=== PATIENT | female | born 1985 | race Caucasian/White ===

== ENCOUNTER 2018-12-30 05:55 | Inpatient (IN) | payer OTHER ==
[2018-12-30] MEDS ORDERED: OXYTOCIN 30 UNITS/LR 500 ML IV ×2 (10:30→23:00)
[2018-12-30] MEDS ORDERED: MISOPROSTOL 200 MCG TAB PR ×2 (10:30→23:00)
[2018-12-30] MEDS ORDERED: LIDOCAINE 1% (MPF) 30 ML INJ INJ (10:30)
[2018-12-30] MEDS ORDERED: CARBOPROST 250 MCG INJ IM ×2 (10:30→23:00)
[2018-12-30] MEDS: LACTATED RINGER'S 1,000 ML IV ×2 (11:27→13:15)
[2018-12-30 11:45] LABS: ADD MAN DIFF? NO
[2018-12-30 11:49] LABS: WHITE BLOOD COUNT 16.5 10^3/ul (4.8-10.8)
[2018-12-30 11:49] LABS: BASOPHILS % 0.2 % (0.0-2.0); HEMATOCRIT 39.4 % (37.0-47.0); HEMOGLOBIN 13.2 g/dl (12.0-16.0); LYMPHOCYTES # 2.3 10^3/ul (0.8-2.9); LYMPHOCYTES % 13.9 % (15.0-51.0); MEAN CORPUSCULAR HEMOGLOBIN 29.2 pg (29.0-33.0); MEAN CORPUSCULAR HGB CONC 33.5 g/dl (32.0-37.0); MEAN CORPUSCULAR VOLUME 87.2 fl (82.0-101.0); MEAN PLATELET VOLUME 10.9 fl (7.4-10.4); MONOCYTE # 0.5 10^3/ul (0.3-0.9); MONOCYTES % 2.7 % (0.0-11.0); NEUTROPHIL # 13.6 10^3/ul (1.6-7.5); NEUTROPHILS % 82.5 % (39.0-77.0); PLATELET COUNT 255 10^3/UL (140-415); RED BLOOD COUNT 4.52 10^6/ul (4.20-5.40); RED CELL DISTRIBUTION WIDTH 13.2 % (11.5-14.5)
[2018-12-30] MEDS: BUTORPHANOL 2 MG INJ IV (11:54)
[2018-12-30] MEDS ORDERED: BUTORPHANOL 2 MG INJ IV (12:00)
[2018-12-30 12:09] LABS: INR 0.94; PROTIME 12.7 Sec (11.9-14.9)
[2018-12-30 12:10] LABS: PARTIAL THROMBOPLASTIN TIME 27.6 Sec (23.0-35.0)
[2018-12-30] MEDS ORDERED: ROPIVACAINE 0.2% 100 ML (12:33)
[2018-12-30] MEDS ORDERED: DIPHENHYDRAMINE 50 MG INJ IV (13:30)
[2018-12-30] MEDS ORDERED: FENTAnyl 2MCG/ML-ROPIV 0.2% 100 ML BAG EPI (13:30)
[2018-12-30] MEDS ORDERED: NALOXONE (0.4 MG/ML) INJ IV (13:30)
[2018-12-30] MEDS ORDERED: ONDANSETRON 4 MG INJ IV ×2 (13:30→23:00)
[2018-12-30] MEDS ORDERED: KETOROLAC 30 MG INJ IV (13:30)
[2018-12-30 15:19] LABS: RAPID PLASMA REAGIN NONREACTIVE (NR)
[2018-12-30] MEDS: OXYTOCIN 30 UNITS/LR 500 ML IV ×4 (17:55→23:03)
[2018-12-30] MEDS ORDERED: MINERAL OIL LIGHT 10 ML VIAL TOP (21:30)
[2018-12-30] MEDS ORDERED: NA PHOSPHATE/BIPHOS 133 ML ENEMA PR (23:00)
[2018-12-30] MEDS ORDERED: MAGNESIUM HYDROXIDE 30ML CUP PO (23:00)
[2018-12-30] MEDS ORDERED: HYDROCODONE/APAP (5/325) TAB PO (23:00)
[2018-12-30] MEDS ORDERED: METHYLERGONOVINE 0.2 MG INJ IM (23:00)
[2018-12-30] MEDS ORDERED: ZOLPIDEM 5 MG TAB PO (23:00)
[2018-12-30] MEDS ORDERED: DIPHENHYDRAMINE 25 MG CAP PO (23:00)
[2018-12-30] MEDS ORDERED: METHYLERGONOVINE 0.2 MG TAB PO (23:00)
[2018-12-30 23:06] LABS: CBV Base Excess -6.7 mmol/L; CBV COHb 0.9 %; CBV Oxygen Sat 39.2 mmHG; CBV Total Hemglobin 18.8 g/dl; Cord Blood Venous pO2 19.3 mmHG (15.0-45.0); Fraction OxyHgb Cord Venous 38.3 %; MODE ROOM AIR; MetHgb Cord Venous 1.4 %; Sample Type Blood venous; Site CORD
[2018-12-30] MEDS: AMPICILLIN 2 GM/NS (PMX) 100 ML IV (23:06)
[2018-12-30] MEDS: LACTATED RINGER'S 1,000 ML IV* (23:06)
[2018-12-30 23:09] LABS: AADO2 Cord Arterial 63.5 mmHg; Arterial Cord Blood pCO2 60.1 mmHG (25-50); CBA Base Excess -8.4 mmol/L; CBA COHb 0.2 %; CBA Oxygen Sat 23.8 mmHG; CBA Total Hemglobin 18.3 g/dl; Cord Blood Arterial pO2 14.3 mmHG (15.0-45.0); Fraction OxyHgb Cord Arterial 23.4 %; MODE ROOM AIR; MetHgb Cord Arterial 1.6 %; Site CORD
[2018-12-30] MEDS: METHYLERGONOVINE 0.2 MG INJ IM (23:20)
[2018-12-31] MEDS ORDERED: AMPICILLIN 1 GM/NS (PMX) 50 ML IV (01:30)
[2018-12-31] MEDS: LACTATED RINGER'S 1,000 ML IV (02:25)
[2018-12-31] MEDS: LACTATED RINGER'S 1,000 ML IV* (03:16)
[2018-12-31] MEDS: LANOLIN HPA 1 PKT TOP (05:08)
[2018-12-31] MEDS: WITCH HAZEL/GLYCERIN PAD PR (05:08)
[2018-12-31] MEDS: BENZOCAINE 20% 56 ML SPRAY TOP (05:08)
[2018-12-31] MEDS: HYDROCODONE/APAP (5/325) TAB PO (05:43)
[2018-12-31 09:29] LABS: ADD MAN DIFF? NO
[2018-12-31 09:31] LABS: WHITE BLOOD COUNT 18.8 10^3/ul (4.8-10.8)
[2018-12-31 09:31] LABS: BASOPHILS % 0.2 % (0.0-2.0); HEMATOCRIT 35.3 % (37.0-47.0); HEMOGLOBIN 11.9 g/dl (12.0-16.0); LYMPHOCYTES # 3.5 10^3/ul (0.8-2.9); LYMPHOCYTES % 18.7 % (15.0-51.0); MEAN CORPUSCULAR HEMOGLOBIN 29.2 pg (29.0-33.0); MEAN CORPUSCULAR HGB CONC 33.7 g/dl (32.0-37.0); MEAN CORPUSCULAR VOLUME 86.7 fl (82.0-101.0); MEAN PLATELET VOLUME 10.8 fl (7.4-10.4); MONOCYTE # 0.8 10^3/ul (0.3-0.9); MONOCYTES % 4.3 % (0.0-11.0); NEUTROPHIL # 14.3 10^3/ul (1.6-7.5); NEUTROPHILS % 76.2 % (39.0-77.0); PLATELET COUNT 240 10^3/UL (140-415); RED BLOOD COUNT 4.07 10^6/ul (4.20-5.40); RED CELL DISTRIBUTION WIDTH 13.8 % (11.5-14.5)
[2018-12-31] MEDS: SENNA/DOCUSATE NA (8.6MG/50MG) TAB PO ×2 (10:09→21:00)
[2018-12-31 10:30] LABS: HEPATITIS B SURFACE ANTIGEN NEGATIVE (NEGATIVE)
[2018-12-31] MEDS ORDERED: IBUPROFEN 600 MG TAB PO (13:30)
[2019-01-01] MEDS: VARICELLA VACCINE LIVE/PF 1,350 UNIT/0.5 ML ML SC* (09:00)
[2019-01-01] MEDS: DIPHTH/TET/ACEL PERTUSS (ADULT) 0.5 ML VIAL IM* (09:00)
[2019-01-01] MEDS: MEASLES,MUMPS,RUBELLA VACCINE INJ SC* (09:00)
[2019-01-01] MEDS: SENNA/DOCUSATE NA (8.6MG/50MG) TAB PO (10:13)
[2019-01-01] MEDS: BISACODYL 10 MG SUPP PR (16:27)
[2019-01-01] MEDS: MAGNESIUM HYDROXIDE 30ML CUP PO (16:27)
== END 2019-01-01 19:10 | disposition home or self-care (01) | DRG 807 ==
LOC: OBT 05:55 → PP1 12-31 00:39 → L-D 05:55 → OBT 10:08 → L-D 10:30
PROVIDERS: Obstetrics & Gynecology
PROC: 10E0XZZ Delivery of Products of Conception, External Approach (ICD-10-PCS; principal; 2018-12-30)
PROC: 0UQMXZZ Repair Vulva, External Approach (ICD-10-PCS; 2018-12-30)
DX: O24.12 Pre-existing type 2 diabetes mellitus, in childbirth (principal); Z37.0 Single live birth; E11.9 Type 2 diabetes mellitus without complications; O69.81X0 Labor and delivery complicated by cord around neck, without compression, not applicable or unspecified; O77.0 Labor and delivery complicated by meconium in amniotic fluid; O70.0 First degree perineal laceration during delivery; Z3A.38 38 weeks gestation of pregnancy
CPT/HCPCS: 36415; 36600; 62319; 76815; 76818; 82803; 82962; 85025; 85610; 85730; 86592; 86850; 86900; 86901; 87340; 90716; 99464